=== PATIENT | female | born 1980 | race Caucasian/White ===

== ENCOUNTER 2016-10-04 22:06 | Emergency (ER) | payer SELFPAY ==
[~2016-10-04] VITALS: Ht 162.6 cm; Wt 84.4 kg
[2016-10-04 23:31] LABS: Basophils # (auto) 0 uL; Basophils % (auto) 0.3 % (0.0-2.0); Eosinophils # (auto) 0 uL; Eosinophils % (auto) 0.3 % (0.0-7.0); Hematocrit 46.2 % (36.0-46.0); Hemoglobin 15.5 g/dL (12.2-16.2); Lymphocytes # (auto) 2.2 uL; Lymphocytes % (auto) 14.4 % (10.0-50.0); Mean Corpuscular Hemoglobin 28.5 pg (28.0-32.0); Mean Corpuscular Hgb Conc. 33.5 g/dL (32.0-36.0); Mean Corpuscular Volume 85.2 fL (80.0-100.0); Mean Platelet Volume 7.8 fL (7.4-10.4); Monocytes # (auto) 0.9 uL; Monocytes % (auto) 5.9 % (0.0-12.0); Neutrophils # (auto) 12.1 uL; Neutrophils % (auto) 79.1 % (37.0-80.0); Platelet Count (auto) 351 10^3/uL (140-450); Red Cell Distribution Width 13.6 % (11.6-16.0); White Blood Cell 15.3 10^3/uL (4.4-10.8)
[2016-10-04 23:49] LABS: Albumin 3.5 g/dL (3.4-5.0); BUN/Creatinine Ratio 13.2; Calcium 8.8 mg/dL (8.5-10.1); Potassium 3.7 mmol/L (3.5-5.1)
[2016-10-05 00:02] LABS: Bilirubin, Total 1.3 mg/dL (0.2-1.0); Total Protein 7.9 g/dL (6.4-8.2)
[2016-10-05] MEDS ORDERED: HYDROmorphone HCL 2 MG/ML VL IM ONE (06:30)
[2016-10-05] MEDS ORDERED: IBUPROFEN 600 MG TAB PO ONE (06:30)
[2016-10-05] MEDS ORDERED: ONDANSETRON ODT 4 MG TAB PO ONE (06:30)
[2016-10-05 06:37] LABS: Urine Bilirubin Negative (Negative); Urine Color Yellow (Yellow); Urine RBC 141 /hpf (0 - 4); Urine Squamous Epithelial Cell FEW /hpf (<5); Urine Urobilinogen Normal (Negative)
[2016-10-05 06:39] LABS: Urine Blood 3+ /uL (Negative); Urine Glucose 4+ mg/dL (Normal); Urine Ketone 2+ (Negative); Urine Nitrite POSITIVE (Negative)
[2016-10-05 06:48] VITALS: BP 140/96
== END 2016-10-05 06:29 | disposition home or self-care (01) ==
LOC: ER 22:27
DX: N83.201 Unspecified ovarian cyst, right side (principal); Z88.0 Allergy status to penicillin
CPT/HCPCS: 36415; 76830; 76856; 80053; 81001; 84702; 85025; 96372; 99285; J1170; Q0162

== ENCOUNTER 2016-10-31 10:24 | Inpatient (IN) | payer SELFPAY ==
[~2016-10-31] VITALS: Ht 162.6 cm; Wt 83.9 kg
[2016-10-31 12:31] LABS: Basophils # (auto) 0 uL; Basophils % (auto) 0.3 % (0.0-2.0); Eosinophils # (auto) 0 uL; Eosinophils % (auto) 0.2 % (0.0-7.0); Hematocrit 40.9 % (36.0-46.0); Hemoglobin 14.1 g/dL (12.2-16.2); Lymphocytes # (auto) 1.6 uL; Lymphocytes % (auto) 15.7 % (10.0-50.0); Mean Corpuscular Hemoglobin 29.1 pg (28.0-32.0); Mean Corpuscular Hgb Conc. 34.5 g/dL (32.0-36.0); Mean Corpuscular Volume 84.4 fL (80.0-100.0); Mean Platelet Volume 7.9 fL (7.4-10.4); Monocytes # (auto) 0.6 uL; Monocytes % (auto) 6.2 % (0.0-12.0); Neutrophils # (auto) 7.8 uL; Neutrophils % (auto) 77.6 % (37.0-80.0); Platelet Count (auto) 269 10^3/uL (140-450); Red Cell Distribution Width 13.5 % (11.6-16.0)
[2016-10-31 12:34] LABS: Urine RBC None Seen /hpf (0 - 4)
[2016-10-31 12:50] LABS: Albumin 3.1 g/dL (3.4-5.0); BUN/Creatinine Ratio 14.3; Bilirubin, Total 1.6 mg/dL (0.2-1.0); Calcium 9.1 mg/dL (8.5-10.1); Potassium 3.9 mmol/L (3.5-5.1); Total Protein 8.5 g/dL (6.4-8.2)
[2016-10-31] MEDS ORDERED: SODIUM CHLORIDE 0.9% 1,000 ML IV ONE ×2 (13:00→18:00)
[2016-10-31 13:06] LABS: Urine Bilirubin Negative (Negative); Urine Blood Negative /uL (Negative); Urine Color Yellow (Yellow); Urine Nitrite Negative (Negative); Urine Squamous Epithelial Cell FEW /hpf (<5); Urine Urobilinogen Normal (Negative)
[2016-10-31 13:09] LABS: Urine Glucose 4+ mg/dL (Normal); Urine Ketone 2+ (Negative)
[2016-10-31 14:45] LABS: Partial Thromboplastin Time 26.1 sec (22.64-33.71); Prothrombin Time 9.6 sec (9.37-12.3)
[2016-10-31] MEDS ORDERED: MORPHINE SULF INJ 2 MG/ML SYRINGE 1ML IV ONE (14:45)
[2016-10-31] MEDS ORDERED: ONDANSETRON HCL 4 MG/2 ML VIAL IV ONE (14:45)
[2016-10-31 14:46] LABS: Magnesium 1.5 mg/dL (1.6-2.6)
[2016-10-31 14:58] LABS: INR 0.88 (0.9-1.15)
[2016-10-31] MEDS ORDERED: InsuLIN REG 1unit/0.01ml Soln (100units/ml) SC ONE (16:30)
[2016-10-31] MEDS: MAGNESIUM SULFATE 1GM/100ML 100 ML IV SCH ×2 (17:30→20:07)
[2016-10-31] MEDS ORDERED: ACETAMINOPHEN 325 MG TAB PO ONE (18:00)
[2016-10-31] MEDS ORDERED: cloNIDine HCL 0.1 MG TAB PO ONE (18:00)
[2016-10-31] MEDS ORDERED: cefTRIAXone 1GM/50ML D5W 50 ML IV ONE ×2 (18:00→18:15)
[2016-10-31] MEDS ORDERED: ACETAMINOPHEN 500 MG TAB PO PRN (18:15)
[2016-10-31] MEDS ORDERED: DEXTROSE (50%) 50ML SYRG IV PRN (18:15)
[2016-10-31] MEDS ORDERED: LORazepam 0.5 MG TAB PO PRN (18:15)
[2016-10-31] MEDS ORDERED: NITROGLYCERIN 0.4 MG SL TAB SL PRN (18:15)
[2016-10-31] MEDS ORDERED: MORPHINE SULF INJ 2 MG/ML SYRINGE 1ML IV PRN (18:15)
[2016-10-31] MEDS ORDERED: TEMAZEPAM 15 MG CAP PO PRN (18:15)
[2016-10-31] MEDS ORDERED: HYDROcodone-ACET 5/325MG TAB PO PRN (18:15)
[2016-10-31] MEDS ORDERED: PROMETHAZINE HCL 25 MG/ML 1ML IV PRN (18:15)
[2016-10-31] MEDS: FAMOTIDINE (10MG/ML) 2ML VL IV SCH (18:35)
[2016-10-31] MEDS: InsuLIN REG 1unit/0.01ml Soln (100units/ml) SC SCH ×2 (19:40→23:57)
[2016-10-31] MEDS: ACCU-CHEK COMFORT CURVE STRIP VI SCH ×2 (19:42→23:57)
[2016-10-31] MEDS: MORPHINE SULF INJ 2 MG/ML SYRINGE 1ML IV PRN (20:19)
[2016-10-31] MEDS: SODIUM CHLORIDE 0.9% 1,000 ML IV SCH (20:57)
[2016-11-01] MEDS: MORPHINE SULF INJ 2 MG/ML SYRINGE 1ML IV PRN ×2 (01:36→10:38)
[2016-11-01] MEDS: InsuLIN REG 1unit/0.01ml Soln (100units/ml) SC SCH ×2 (03:43→08:00)
[2016-11-01] MEDS: ACCU-CHEK COMFORT CURVE STRIP VI SCH ×2 (03:43→08:00)
[2016-11-01] MEDS: SODIUM CHLORIDE 0.9% 1,000 ML IV SCH (03:47)
[2016-11-01 04:09] LABS: Basophils # (auto) 0 uL; Basophils % (auto) 0.2 % (0.0-2.0); Eosinophils # (auto) 0 uL; Eosinophils % (auto) 0.2 % (0.0-7.0); Hematocrit 34.3 % (36.0-46.0); Hemoglobin 11.5 g/dL (12.2-16.2); Lymphocytes # (auto) 1.3 uL; Lymphocytes % (auto) 16.8 % (10.0-50.0); Mean Corpuscular Hemoglobin 28.7 pg (28.0-32.0); Mean Corpuscular Hgb Conc. 33.6 g/dL (32.0-36.0); Mean Corpuscular Volume 85.5 fL (80.0-100.0); Monocytes # (auto) 0.6 uL; Monocytes % (auto) 7.3 % (0.0-12.0); Neutrophils % (auto) 75.5 % (37.0-80.0); Platelet Count (auto) 234 10^3/uL (140-450); Red Cell Distribution Width 13.6 % (11.6-16.0)
[2016-11-01 04:18] LABS: BUN/Creatinine Ratio 17.4; Potassium 3.6 mmol/L (3.5-5.1)
[2016-11-01 04:19] LABS: Albumin 2.4 g/dL (3.4-5.0); Calcium 7.6 mg/dL (8.5-10.1)
[2016-11-01 04:22] LABS: Bilirubin, Total 0.6 mg/dL (0.2-1.0); Total Protein 6.5 g/dL (6.4-8.2)
[2016-11-01] MEDS: FAMOTIDINE (10MG/ML) 2ML VL IV SCH (06:39)
[2016-11-01] MEDS ORDERED: cefTRIAXone 1GM/50ML D5W 50 ML IV SCH (09:00)
[2016-11-01] MEDS ORDERED: PANTOPRAZOLE 40 MG TAB PO SCH (10:00)
[2016-11-01 11:34] LABS: Hematocrit 33.9 % (36.0-46.0); Hemoglobin 11.6 g/dL (12.2-16.2)
[2016-11-01] MEDS ORDERED: DULO60CA PO (12:08)
[2016-11-01] MEDS ORDERED: METF-370 PO (12:08)
[2016-11-01] MEDS ORDERED: HYDR-531 PO (12:08)
[2016-11-01 12:23] VITALS: BP 114/74
== END 2016-11-01 12:51 | disposition home or self-care (01) | DRG 690 ==
LOC: ER 10:26 → TELE 10:27 → TELE-E-ADS 11-01 09:45
PROVIDERS: ADMIT Internal Medicine; ATTEND Internal Medicine
DX: N12 Tubulo-interstitial nephritis, not specified as acute or chronic (principal); E87.1 Hypo-osmolality and hyponatremia; E11.65 Type 2 diabetes mellitus with hyperglycemia; E83.42 Hypomagnesemia; I10 Essential (primary) hypertension; K76.0 Fatty (change of) liver, not elsewhere classified; M79.7 Fibromyalgia; E11.40 Type 2 diabetes mellitus with diabetic neuropathy, unspecified; N83.202 Unspecified ovarian cyst, left side; Z82.49 Family history of ischemic heart disease and other diseases of the circulatory system; Z87.442 Personal history of urinary calculi; Z83.3 Family history of diabetes mellitus; Z88.0 Allergy status to penicillin; Z90.49 Acquired absence of other specified parts of digestive tract
CPT/HCPCS: 36415; 71010; 74176; 76830; 76856; 80053; 81001; 81025; 82150; 82962; 83036; 83690; 83735; 85014; 85018; 85025; 85045; 85610; 85652; 85730; 86141; 86850; 86900; 86901; 87040; 87086; 94761; 96361; 96365; 96366; 96372; 96375; J0696; J1815; J2405; J3490